=== PATIENT | male | born 1965 | race Two or more races ===

== ENCOUNTER 2017-02-17 17:35 | Emergency (ER) | payer SELFPAY ==
[~2017-02-17] VITALS: Ht 162.6 cm; Wt 72.6 kg
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
--- NOTE | 2017-02-17 17:46 | NUR ---
DAYANARA PATEL AT BEDSIDE FOR EVAL.
[2017-02-17] MEDS ORDERED: LORAZEPAM 1 MG TABLET PO ONE (18:00)
--- NOTE | 2017-02-17 18:12 | NUR ---
PT TO RADIOLOGY FOR HEAD CT SCAN VIA [facility].
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
[2017-02-17 19:24] VITALS: BP 125/77
== END 2017-02-17 19:25 | disposition home or self-care (01) ==
LOC: ER 17:38
DX: S00.83XA Contusion of other part of head, initial encounter (principal); F10.10 Alcohol abuse, uncomplicated; Z59.0 Homelessness; Y04.8XXA Assault by other bodily force, initial encounter; Y93.89 Activity, other specified; Y92.89 Other specified places as the place of occurrence of the external cause; Y99.8 Other external cause status
CPT/HCPCS: 70450; 82962; 99284; A4606; Z7610